=== PATIENT | female | born 1970 | race Hispanic/Latino ===

== ENCOUNTER 2018-11-01 08:47 | Inpatient (IN) | payer SELFPAY ==
[~2018-11-01 08:47] MED LIST: ISOVUE-370 76%-LOCM 1 ML ONE
[2018-11-01] MEDS ORDERED: Naloxone HCl 2 mg/2 ml Syringe ONE (09:01)
--- NOTE | 2018-11-01 09:25 | RAD ---
PORTABLE CHEST: Date: 11/01/18 INDICATION: Vomiting blood. Lethargy. FINDINGS: Lung rodriguez are clear. No infiltrate. Vascular markings are within normal range. Heart and mediastinu m unremarkable. IMPRESSION: Unremarkable chest. POS: [facility]
[2018-11-01 09:27] LABS: PTT 23.1 SEC (22.9-36.1); Prothrombin Time 13.6 SEC (12.0-14.7)
[2018-11-01 09:30] LABS: BHCG - Serum Negative (NEGATIVE); Pregs Control Background? CLEAR/WHITE (CLR/WHITE); Pregs Control Bar Appear? YES (CONTROL BAR)
[2018-11-01 09:36] LABS: Bilirubin Negative (Negative); Blood, Urine Negative (Negative); Clarity CLEAR (Clear); Glucose, Urine (Dipstick) Negative (Negative); Leukocyte Negative (Negative); Nitrite Negative (Negative); Protein, Urine (Dipstick) Trace mg/dL (Neg-Trace); Specific Gravity, Urine 1.022 (1.002-1.036); Urobilinogen 0.2 mg/dL (0.2-1.0)
[2018-11-01 09:38] LABS: Amphetamine Not Detected (NotDetected); Barbiturates Screen Not Detected (NotDetected); Benzodiazepine Screen Not Detected (NotDetected); Cocaine Metabolite Screen Not Detected (NotDetected); Medtox Control Line Valid? VALID (VALID); Medtox Reader # READER 1; Methadone Not Detected (NotDetected); Methamphetamine Not Detected (NotDetected); Opiate Screen Not Detected (NotDetected); Oxycodone Screen Not Detected (NotDetected); Phencyclidine (PCP) Not Detected (NotDetected); THC/Cannabinoid Screen Not Detected (NotDetected); Tricyclic Screen Not Detected (NotDetected)
[2018-11-01 09:44] LABS: ALT (SGPT) 17 U/L (8-55); AST (SGOT) 16 U/L (5-34); Albumin 4.4 g/dL (3.5-5.0); Alkaline Phosphatase 122 U/L (40-150); Anion Gap 25 mmol/L (10-20); BUN (Urea Nitrogen) 15 mg/dL (7.0-18.7); Bilirubin, Total 0.5 mg/dL (0.2-1.2); CK (CPK) 65 U/L (29-168); Calc. Creatinine Clearance 0 mL/min (70-130); Calcium 10.1 mg/dL (7.8-10.44); Carbon Dioxide 18 mmol/L (22-29); Chloride 101 mmol/L (98-107); Estimated GFR-MDRD 69; Globulin 3.4 g/dL (2.4-3.5); Lipase 36 U/L (8-78); Potassium 3.5 mmol/L (3.5-5.1); Protein, Total 7.8 g/dL (6.0-8.3); Sodium 140 mmol/L (136-145)
[2018-11-01 09:47] LABS: Glucose 248 mg/dL (70-105)
[2018-11-01 09:52] LABS: Hemoglobin 12.8 g/dL (12.0-16.0); Mean Corpuscular HGB CONC 30.6 g/dL (32.0-36.0); Mean Corpuscular Hemoglobin 22.9 pg (27.0-31.0); Mean Corpuscular Volume 74.8 fL (78.0-98.0); Mean Platelet Volume 9.1 fL (7.4-10.4); Platelet Count 346 thou/uL (130-400); RBC Distribution Width 11.6 % (11.5-14.5); Red Blood Cell (RBC) Count 5.58 mill/uL (4.20-5.40); White Blood Cell (WBC) Count 13.2 thou/uL (4.8-10.8)
[2018-11-01 09:53] LABS: Acetaminophen Less than 6.0 mcg/mL (10.0-30.0); Alcohol Less than 10 mg/dL (Less than 10); Salicylate Less than 8.0 mg/dL (15.0-30.0)
[2018-11-01 09:55] LABS: Lymphocytes 62 % (21-51); MDiff Complete? YES; Monocytes 5 % (0-10); Neutrophil 32 % (42-75); Platelet Morphology Comment Appears Adequate; RBC Morphology Normal; Reactive Lymphocytes 1 % (0-10)
--- NOTE | 2018-11-01 10:15 | CT ---
CT HEAD WITHOUT CONTRAST: Multiple axial tomograms were obtained through the head without IV enhancement. INDICATION: Mental status change. FINDINGS: Ventricles have normal size and position. There is no evidence of intracranial mass, hemorrhage, or infarct. The visualized sinuses and mastoids are clear. IMPRESSION: No acute abnormality. POS: [facility]
--- NOTE | 2018-11-01 10:17 | CT ---
CT ABDOMEN WITH CONTRAST: CT PELVIS WITH CONTRAST: HISTORY: Hematemesis, onset not stated. COMPARISON: None. FINDINGS: ABDOMEN: Dependent atelectatic changes in both lower lobes. Normal heart size. No significant osman cardial fluid. The descending thoracic aorta and the abdominal aorta have a normal caliber. No osman aortic fat stranding. Patent portal vein. Unremarkable gallbladder. Mild hypoattenuation of the li lance, diffuse, throughout the hepatic parenchyma, may represent components of hepatic steatosis. No e nhancing masses in the liver. The spleen, pancreas, and bilateral adrenal glands are unremarkable. No gastrohepatic, retrocrural, or periportal lymphadenopathy. Symmetric enhancement of the kidneys. Bilaterally, no obstructive uropathy. No mesenteric mass, lymphadenopathy, free air, or free fluid. Limited evaluation of the alimentary canal due to lack of oral contrast. Mucosal prominence of the g astric cardiac, likely due to inadequate distention. The duodenum and small bowel loops are unremark able. No evidence of bowel dilatation or distention. The ileocecal junction is normal. Normal fabiana homa appendix. Scattered fecal material in a nondistended, nondilated colon. PELVIS: The uterus and adnexal structures are unremarkable. No pelvic mass, lymphadenopathy, free a ir, or free fluid. The urinary bladder is also unremarkable. No lytic or blastic lesions in the osseous structures. IMPRESSION: No acute abnormality in the abdomen or pelvis. POS: [facility]
[2018-11-01] MEDS ORDERED: Piperacillin/Tazobactam 4.5 GM VIAL ONE (10:29)
[2018-11-01] MEDS ORDERED: Pantoprazole 40 MG VIAL ONE ×2 (10:29→10:33)
[2018-11-01] MEDS ORDERED: Lorazepam 2 MG/ML VIAL ONE (11:47)
--- NOTE | 2018-11-01 12:05 | ULT ---
LEFT UPPER EXTREMITY DOPPLER VEIN ULTRASOUND: Date: 11/01/18 INDICATION: Left upper extremity pain. FINDINGS: Sofia scale and Doppler color flow imaging with spectral analysis performed. The imaged deep vein structures of the left upper extremity are patent. There is no deep venous throm bosis identified. Appropriate compressibility and flow are elicited from the visualized venous struct ures of the left upper extremity. IMPRESSION: No deep venous thrombosis. POS: [facility]
[2018-11-01] MEDS ORDERED: Ondansetron PF 4 MG/2 ML Vial IVP PRN ×2 (12:30→13:19)
[2018-11-01] MEDS ORDERED: Acetaminophen 325 MG TAB PO PRN (12:30)
[2018-11-01] MEDS ORDERED: Sodium Chloride 0.9% 1,000 ML IV SCH (12:30)
[2018-11-01] MEDS ORDERED: Ondansetron ODT 4 MG TAB SL PRN (12:30)
[2018-11-01] MEDS ORDERED: Ondansetron ODT 4 MG TAB PO PRN (13:19)
[2018-11-01] MEDS ORDERED: Acetaminophen 500 MG TAB PO PRN (13:19)
[2018-11-01] MEDS ORDERED: HumaLOG 300 UNITS/3 ML VIAL SC PRN ×2 (13:19)
[2018-11-01] MEDS ORDERED: Dextrose 5% in Water 1,000 ML IV PRN (13:19)
[2018-11-01] MEDS ORDERED: Dextrose 50% Abboject 50 ML SYRINGE SLOW IVP PRN (13:19)
[2018-11-01 13:37] LABS: Lactic Acid 6.6 mmol/L (0.5-2.2)
[2018-11-01] MEDS ORDERED: Pantoprazole 40 MG VIAL IVP SCH (13:45)
[2018-11-01] MEDS ORDERED: Lorazepam 2 MG/ML VIAL SLOW IVP PRN (14:29)
[2018-11-01] MEDS ORDERED: levETIRAcetam 500 MG TAB PO SCH (14:45)
[2018-11-01] MEDS: Sodium Chloride 0.9% 1,000 ML IV SCH ×2 (15:36→23:49)
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
[2018-11-01] MEDS: Chlorhexidine Gluconate 15 ML UDCUP SSP SCH ×2 (15:50→21:03)
[2018-11-01 16:16] VITALS: BMI 30.4
--- NOTE | 2018-11-01 17:39 | CON ---
DATE OF CONSULTATION: 11/01/2018 CHIEF COMPLAINT: Blood in the mouth. HISTORY OF PRESENT ILLNESS: Ms. Echevarria is a 47-year-old woman, who is currently pretty altered after having received 4 mg of Ativan. She had a seizure earlier today. History is largely from the chart and discussion with medical student, who did speak with family earlier; however, family is not available now also. GI was consulted by the ER physician after the patient was found to have blood in her mouth. She apparently had a seizure yesterday. She had another seizure today. She has a laceration on her anterior tongue appears to have bled recently. She has had no known overt GI bleeding. She had a stool Hemoccult performed, which was negative. PAST MEDICAL HISTORY: Diabetes, hypertension, and seizure disorder. PAST SURGICAL HISTORY: Not known at this time. FAMILY HISTORY: Not known at this time. MEDICATIONS: At home include; 1. Metformin. 2. Dilantin. REVIEW OF SYSTEMS: Not obtainable. PHYSICAL EXAMINATION: GENERAL: The patient is sleepy. She is Setswana-speaking, but is not extremely interactive at this time. She will follow commands. HEENT: Her eyes have no scleral icterus. Oropharynx reveals a laceration in her anterior tongue. VITAL SIGNS: Temperature 97.9, pulse has been in 80s, and blood pressure 146/85. LABORATORY DATA: White blood cell count 13.2, hemoglobin 12.8, MCV 74.8, and platelets 346. INR 1.0. Creatinine 0.88, bilirubin 0.5, AST 16, ALT 17, alkaline phosphatase 122, and albumin 4.4. Serum test is negative. Lactic acid was elevated at 12.9 on presentation, down to 6.6 later in the afternoon. Plasma alcohol was less than 10. Tox screen was otherwise negative. IMPRESSION: Hematemesis. This actually appears to be a laceration on the tongue that have occurred during seizure. Her hemoglobin is normal and she is Hemoccult negative stool. RECOMMENDATIONS: I will sign off for now. Please call if GI can be of assistance. Job ID: [id number]
[2018-11-01] MEDS: Pantoprazole 40 MG VIAL IVP SCH (20:57)
[2018-11-01] MEDS: Famotidine/PF 20 mg/2ml Vial SLOW IVP SCH (20:59)
[2018-11-01] MEDS ORDERED: Cefepime 2 GM in Sodium Chloride 0.9% 100 ML IVPB SCH (21:00)
[2018-11-01] MEDS: levETIRAcetam 500 MG TAB PO SCH (21:00)
[2018-11-01] MEDS ORDERED: Vancomycin HCl 1 GM in Premix Bag 1 BAG IVPB SCH (23:59)
[2018-11-02 05:23] LABS: Hemoglobin A1c 8.1 % (4.0-6.0)
[2018-11-02 05:38] LABS: ALT (SGPT) 15 U/L (8-55); AST (SGOT) 15 U/L (5-34); Albumin 3.5 g/dL (3.5-5.0); Alkaline Phosphatase 86 U/L (40-150); Anion Gap 12 mmol/L (10-20); BUN (Urea Nitrogen) 8 mg/dL (7.0-18.7); Bilirubin, Total 0.6 mg/dL (0.2-1.2); Calc. Creatinine Clearance 100 mL/min (70-130); Calcium 8.7 mg/dL (7.8-10.44); Carbon Dioxide 26 mmol/L (22-29); Chloride 107 mmol/L (98-107); Estimated GFR-MDRD 80; Globulin 2.6 g/dL (2.4-3.5); Glucose 173 mg/dL (70-105); Potassium 3.7 mmol/L (3.5-5.1); Protein, Total 6.1 g/dL (6.0-8.3); Sodium 141 mmol/L (136-145)
[2018-11-02] MEDS: Sodium Chloride 0.9% 1,000 ML IV SCH (06:24)
[2018-11-02 07:07] LABS: Hemoglobin 10.3 g/dL (12.0-16.0); Mean Corpuscular HGB CONC 31.4 g/dL (32.0-36.0); Mean Corpuscular Hemoglobin 23.4 pg (27.0-31.0); Mean Corpuscular Volume 74.7 fL (78.0-98.0); Mean Platelet Volume 8.8 fL (7.4-10.4); Platelet Count 251 thou/uL (130-400); RBC Distribution Width 11.4 % (11.5-14.5); Red Blood Cell (RBC) Count 4.39 mill/uL (4.20-5.40); White Blood Cell (WBC) Count 9.8 thou/uL (4.8-10.8)
[2018-11-02] MEDS: Famotidine/PF 20 mg/2ml Vial SLOW IVP SCH (09:09)
[2018-11-02] MEDS: levETIRAcetam 500 MG TAB PO SCH (09:09)
[2018-11-02] MEDS: Pantoprazole 40 MG VIAL IVP SCH (09:11)
[2018-11-02] MEDS: Chlorhexidine Gluconate 15 ML UDCUP SSP SCH (09:13)
[2018-11-02 11:28] LABS: Band 2 % (5-11); Eosinophils 2 % (0-10); Hypochromia SLIGHT = 6-15 cells (100X) (0-5/hpf); Lymphocytes 29 % (21-51); MDiff Complete? YES; Microcytosis SLIGHT = 6-15 cells (100X) (0-5/hpf); Monocytes 1 % (0-10); Neutrophil 57 % (42-75); Platelet Morphology Comment Appears Adequate; Polychromasia SLIGHT = 2-3 cells (100X) (0-2/hpf); Reactive Lymphocytes 9 % (0-10)
--- NOTE | 2018-11-02 14:58 | PDOC.PN ---
- Subjective Encounter Start Date: 11/02/18 Encounter Start Time: 09:40 Pt seen for followup re: seizure. Denies chest pain, shortness of breath, fevers or chills. - Objective Resuscitation Status - Order Detail: 11/01/18 11:11 Resuscitation Status Routine Resuscitation Status: FULL: Full Resuscitation Vital Signs & Weight: Vital Signs (12 hours) Temp Pulse Ox 11/02/18 11:22 99.2 F 11/02/18 07:45 99 11/02/18 07:05 99.2 F 11/02/18 04:00 99.0 F Weight Weight 155 lb 14.4 oz Most Recent Monitor Data Heart Rate from ECG 76 NIBP 156/66 NIBP BP-Mean 96 Respiration from ECG 16 SpO2 100 I&O: 11/01/18 11/02/18 11/03/18 06:59 06:59 06:59 Intake Total 2450 Output Total 750 1000 Balance 1700 -1000 Result Diagrams: 11/02/18 05:08 11/02/18 05:08 Additional Labs: Accuchecks 11/02/18 11/02/18 11/01/18 10:39 06:02 20:02 POC Glucose 242 H 155 H 173 H Phys Exam - Physical Examination Obese HEENT: moist MMs tongue laceration Neck: supple Respiratory: clear to auscultation bilateral Cardiovascular: RRR Gastrointestinal: soft Neurological: moves all 4 limbs Psychiatric: normal affect Dx/Plan (1) Seizure Code(s): R56.9 - UNSPECIFIED CONVULSIONS Status: Acute Comment: will check MRI brain to r/o any intracranial lesions. Most likely cause of seizure is medication noncompliance. Advised patient not to drive until cleared by neurologist (as outpatient) (2) Noncompliance with medication regimen Code(s): Z91.14 - PATIENT'S OTHER NONCOMPLIANCE WITH MEDICATION REGIMEN Status : Chronic Comment: Counseled patient. - Plan * . Review of Systems - Review of Systems Respiratory: negative: Cough, Dry, Shortness of Breath, Hemoptysis, SOB with Excertion, Pleuritic Pain, Sputum, Wheezing Cardiovascular: negative: chest pain, palpitations, orthopnea, paroxysmal nocturnal dyspnea, edema, light headedness Neurological: negative: Weakness, Numbness, Incoordination, Change in Speech, Confusion, Seizures - Medications/Allergies Allergies/Adverse Reactions: Allergies Allergy/AdvReac Type Severity Reaction Status Date / Time No Known Allergies Allergy Verified 11/01/18 14:37 Medications: Current Medications Acetaminophen (Tylenol) 1,000 mg PO Q6H PRN PRN Reason: Mild Pain (1-3) Chlorhexidine Gluconate (Chlorhexidine Gluconate) 15 ml SSP BID [facility] Last Admin: 11/02/18 09:13 Dose: 15 ml Dextrose/Water (Dextrose 50%) 25 gm SLOW IVP PRN PRN PRN Reason: Hypoglycemia Famotidine (Pepcid) 20 mg SLOW IVP Q12HR [facility] Last Admin: 11/02/18 09:09 Dose: 20 mg Glucagon (Glucagon) 1 mg IM PRN PRN PRN Reason: Hypoglycemia Dextrose/Water (D5w) 1,000 mls @ 0 mls/hr IV .Q0M PRN PRN Reason: Hypoglycemia Sodium Chloride (Normal Saline 0.9%) 1,000 mls @ 125 mls/hr IV .Q8H [facility] Last Admin: 11/02/18 06:24 Dose: 1,000 mls Insulin Human Lispro (Humalog) 0 units SC .MILD SLIDING SCALE PRN PRN Reason: Mild Correctional Scale Insulin Human Lispro (Humalog) 0 units SC .BEDTIME SLIDING SC PRN PRN Reason: Bedtime Correctional Scale Levetiracetam (Keppra) 500 mg PO BID [facility] Last Admin: 11/02/18 09:09 Dose: 500 mg Lorazepam (Ativan) 2 mg SLOW IVP Q6H PRN PRN Reason: Seizures Ondansetron HCl (Zofran Odt) 4 mg PO Q6H PRN PRN Reason: Nausea/Vomiting Ondansetron HCl (Zofran) 4 mg IVP Q6H PRN PRN Reason: Nausea/Vomiting Last Admin: 11/01/18 15:35 Dose: 4 mg Pantoprazole Sodium (Protonix) 40 mg IVP Q12HR [facility] Last Admin: 11/02/18 09:11 Dose: 40 mg
[2018-11-02 15:25] VITALS: TEMP 97.9
--- NOTE | 2018-11-02 16:58 | MRI ---
MRI BRAIN WITHOUT CONTRAST: HISTORY: New-onset seizure. COMPARISON: None. FINDINGS: No hemorrhage on the coronal gradient echo sequence. There is symmetric signal intensity of the dave ocampi. No MR evidence of mesial temporal sclerosis. No parenchymal mass, mass effect, or midline shift. Brain volume is age appropriate. Cortical prieto- white matter differentiation is preserved. No evidence of hydrencephalus. Scattered T2 and FLAIR white matter hyperintensities are nonspecific. Absent restricted diffusion. Adequate aeration of the sinuses and mastoid air cells. IMPRESSION: 1. Nonspecific T2 and FLAIR white matter hyperintensities. 2. No MR evidence of mesial temporal sclerosis. 3. No restricted diffusion. No infarct. POS: [facility]
--- NOTE | 2018-11-03 10:55 | DIS ---
DATE OF ADMISSION: 11/01/2018 DATE OF DISCHARGE: 11/02/2018 PRIMARY CARE PROVIDER: None. DISCHARGE DIAGNOSES: 1. Seizure. 2. Laceration of the tongue. CONDITION OF THE PATIENT ON THE DAY OF DISCHARGE: Stable. I assessed Ms. Echevarria on the day of discharge. Please refer to my daily progress note for further details regarding this [id number] encounter. CONSULTATIONS: Gastroenterology, Dr. Snider. DISCHARGE MEDICATIONS: 1. Keppra 500 mg 2 times a day. 2. Amlodipine 2.5 mg daily. 3. Metformin 500 mg 2 times a day. HOSPITAL COURSE: Ms. Echevarria is a pleasant 47-year-old lady, who was admitted to [facility] for seizure in the context of noncompliance with medications. She was started on Keppra. There was no recurrence of seizures. She had MRI of the brain, which showed nonspecific T2 and FLAIR white matter hyperintensities. There was no MRI evidence of mesial temporal sclerosis. There was no restricted diffusion, no infarct. The patient has been advised to follow up with Neurology Service as outpatient. She was also started on amlodipine and metformin. I have given her prescriptions for 2 weeks. She was seen by Gastroenterology Service because of concern regarding GI bleed. She was found to have a tongue laceration which she probably sustained during the seizure. DISCHARGE DESTINATION: Home. TOTAL AMOUNT OF TIME SPENT COORDINATING THIS DISCHARGE: 31 minutes. Job ID: [id number]
== END 2018-11-02 18:50 | disposition home or self-care (01) | DRG 101 ==
LOC: ERS 08:47 → EDBD 08:47 → IMCU/EMU 12:16
PROVIDERS: ADMIT Family Medicine; ATTEND Family Medicine
DX: G40.909 Epilepsy, unspecified, not intractable, without status epilepticus (principal); E87.2 Acidosis; K92.0 Hematemesis; I10 Essential (primary) hypertension; E11.9 Type 2 diabetes mellitus without complications; Z91.14 Patient's other noncompliance with medication regimen
CPT/HCPCS: 36415; 36416; 51701; 70450; 70551; 71045; 74177; 80053; 80185; 80306; 80307; 81003; 82274; 82550; 83036; 83605; 83690; 84484; 84703; 85007; 85025; 85027; 85610; 85730; 86140; 86850; 86900; 86901; 87040; 90471; 90686; 90732; 93005; 96361; 96365; 96367; 96375; A4353; C9113; G0008; G0009; J2060; J2310; J2405; J2543; J3370; J7050; Q9966; S0028

== ENCOUNTER 2018-11-16 14:44 | Emergency (ER) | payer SELFPAY | END 2018-11-16 15:40 | disposition home or self-care (01) | LOC: ERS 14:44 | DX: I10 Essential (primary) hypertension (principal); E11.9 Type 2 diabetes mellitus without complications; Z79.899 Other long term (current) drug therapy | CPT/HCPCS: 99281 ==

== ENCOUNTER 2019-06-10 15:45 | Emergency (ER) | payer SELFPAY ==
--- NOTE | 2019-06-10 17:07 | RAD ---
XR Chest 1 View Portable HISTORY: Chest pain COMPARISON: 11/01/2018 FINDINGS: The heart size is normal. The lungs are well expanded without focal areas of consolidation, pneumothorax or pleural effusions. IMPRESSION: No radiographic evidence of acute cardiopulmonary chest pain process.
== END 2019-06-10 17:41 | disposition left against medical advice (07) ==
LOC: ERS 15:45
DX: R07.2 Precordial pain (principal)
CPT/HCPCS: 36415; 71045; 84484; 93005

== ENCOUNTER 2021-02-04 08:46 | Emergency (ER) | payer SELFPAY ==
[2021-02-04 09:34] LABS: #Lymphocytes 2.4 thou/uL (1.20-3.40); #Monocytes 0.3 thou/uL (0.11-0.59); #Neutrophils 4.3 thou/uL (1.40-6.50); %Basophils 0.5 % (0.0-1.0); %Eosinophils 0.2 % (0.0-10.0); %Lymphocytes 34.4 % (21.0-51.0); %Monocytes 3.9 % (0.0-10.0); %Neutrophils 61.1 % (42.0-75.0); Hemoglobin 12.5 g/dL (12.0-16.0); Mean Corpuscular HGB CONC 31.5 g/dL (32.0-36.0); Mean Corpuscular Hemoglobin 23.4 pg (27.0-31.0); Mean Corpuscular Volume 74.5 fL (78.0-98.0); Mean Platelet Volume 10.1 fL (7.4-10.4); Platelet Count 153 thou/uL (130-400); RBC Distribution Width 11.3 % (11.5-14.5); Red Blood Cell (RBC) Count 5.34 mill/uL (4.20-5.40); White Blood Cell (WBC) Count 7.1 thou/uL (4.8-10.8)
[2021-02-04 09:37] LABS: ALT (SGPT) 92 U/L (8-55); AST (SGOT) 91 U/L (5-34); Albumin 3.9 g/dL (3.5-5.0); Alkaline Phosphatase 97 U/L (40-110); Anion Gap 16 mmol/L (10-20); BUN (Urea Nitrogen) 11 mg/dL (9.8-20.1); Bilirubin, Total 0.4 mg/dL (0.2-1.2); Calc. Creatinine Clearance 0 mL/min (70-130); Calcium 8.3 mg/dL (7.8-10.44); Carbon Dioxide 22 mmol/L (22-29); Chloride 102 mmol/L (98-107); Globulin 3.2 g/dL (2.4-3.5); Glucose 218 mg/dL (70-105); Lipase 26 U/L (8-78); Potassium 3.8 mmol/L (3.5-5.1); Protein, Total 7.1 g/dL (6.0-8.3); Sodium 136 mmol/L (136-145)
[2021-02-04] MEDS ORDERED: Ondansetron PF 4 MG/2 ML Vial ONE (10:02)
[2021-02-04 12:38] LABS: Bilirubin Negative (Negative); Blood, Urine Negative (Negative); Clarity Clear (Clear); Glucose, Urine (Dipstick) Normal (Negative); Ketone, Urine 20 mg/dL (Negative); Leukocyte Negative Leu/uL (Negative); Nitrite Negative (Negative); Protein, Urine (Dipstick) Negative (Neg-Trace); Specific Gravity, Urine 1.016 (1.002-1.036); Urobilinogen Normal mg/dL (Less than 2); pH, Urine 5.5 (5.0-9.0)
[2021-02-04 12:40] LABS: Pregnancy Test - Urine (BHCG) Negative (Negative); Pregu Control Background? CLEAR/WHITE (CLR/WHITE); Pregu Control Bar Appear? YES (CONTROL BAR); Specific Gravity 1.016 (1.002-1.036)
== END 2021-02-04 15:30 | disposition home or self-care (01) ==
LOC: ERS 08:46
DX: R11.2 Nausea with vomiting, unspecified (principal); E11.9 Type 2 diabetes mellitus without complications; I10 Essential (primary) hypertension; Z79.84 Long term (current) use of oral hypoglycemic drugs; Z79.899 Other long term (current) drug therapy
CPT/HCPCS: 36415; 71045; 80053; 81003; 81025; 83690; 84484; 85025; 93005; 94760; 96374; J2405

== ENCOUNTER 2021-02-05 02:54 | Emergency (ER) | payer SELFPAY ==
[2021-02-05] MEDS ORDERED: Lorazepam 2 MG/ML VIAL ONE (04:31)
[2021-02-05] MEDS ORDERED: Acetaminophen 650 MG Suppository ONE (04:37)
[2021-02-05] MEDS ORDERED: levETIRAcetam 500 MG/100 ML PREMIX BAG ONE (04:40)
[2021-02-05 05:31] LABS: Hemoglobin 11.7 g/dL (12.0-16.0); Mean Corpuscular HGB CONC 31.7 g/dL (32.0-36.0); Mean Corpuscular Hemoglobin 23.7 pg (27.0-31.0); Mean Corpuscular Volume 74.8 fL (78.0-98.0); Mean Platelet Volume 10.5 fL (7.4-10.4); Platelet Count 152 thou/uL (130-400); RBC Distribution Width 11.3 % (11.5-14.5); Red Blood Cell (RBC) Count 4.91 mill/uL (4.20-5.40); White Blood Cell (WBC) Count 8.4 thou/uL (4.8-10.8)
[2021-02-05 05:49] LABS: #Lymphocytes 1.7 thou/uL (1.20-3.40); #Monocytes 0.5 thou/uL (0.11-0.59); #Neutrophils 6.1 thou/uL (1.40-6.50); %Basophils 0.2 % (0.0-1.0); %Eosinophils 0.2 % (0.0-10.0); %Lymphocytes 20.5 % (21.0-51.0); %Monocytes 6.1 % (0.0-10.0)
[2021-02-05 05:50] LABS: ALT (SGPT) 66 U/L (8-55); AST (SGOT) 57 U/L (5-34); Albumin 3.4 g/dL (3.5-5.0); Alkaline Phosphatase 84 U/L (40-110); Anion Gap 20 mmol/L (10-20); BUN (Urea Nitrogen) 7 mg/dL (9.8-20.1); Bilirubin, Total 0.2 mg/dL (0.2-1.2); CK (CPK) 116 U/L (29-168); Calc. Creatinine Clearance 0 mL/min (70-130); Calcium 7.5 mg/dL (7.8-10.44); Carbon Dioxide 15 mmol/L (22-29); Chloride 107 mmol/L (98-107); Globulin 3.2 g/dL (2.4-3.5); Glucose 265 mg/dL (70-105); Potassium 4.1 mmol/L (3.5-5.1); Protein, Total 6.6 g/dL (6.0-8.3); Sodium 138 mmol/L (136-145)
== END 2021-02-05 09:00 | disposition short-term general hospital (02) ==
LOC: ERS 02:54
DX: G40.909 Epilepsy, unspecified, not intractable, without status epilepticus (principal); I10 Essential (primary) hypertension; E11.9 Type 2 diabetes mellitus without complications; Z79.84 Long term (current) use of oral hypoglycemic drugs; Z79.899 Other long term (current) drug therapy
CPT/HCPCS: 36415; 36416; 80053; 80177; 82550; 85025; 93005; 94760; 96365; 96375; J1953; J2060

== ENCOUNTER 2021-02-12 07:58 | Emergency (ER) | payer SELFPAY | END 2021-02-12 08:39 | disposition home or self-care (01) | LOC: ERS 07:58 | DX: U07.1 COVID-19 (principal); E11.9 Type 2 diabetes mellitus without complications; I10 Essential (primary) hypertension | CPT/HCPCS: 99281 ==